=== PATIENT | female | born 1980 | race Caucasian/White ===

== ENCOUNTER 2020-04-18 12:15 | Emergency (ER) | payer MEDICAID ==
[~2020-04-18] VITALS: Ht 154.9 cm; Wt 86.2 kg
[~2020-04-18 12:15] MED LIST: CITA-77; DIVA1TAB59; DIVA500T13; DOXE25CA2; HYDR25T; LORA-205; QUET300T14 PO; TRAZ100T3
[2020-04-18 12:34] VITALS: BP 119/72
== END 2020-04-18 13:35 | disposition home or self-care (01) ==
LOC: ER 12:15
DX: F41.9 Anxiety disorder, unspecified (principal); Z76.0 Encounter for issue of repeat prescription

== ENCOUNTER → 2020-05-09 | Emergency (ER) | payer MEDICAID ==
[~2020-05-09] VITALS: Ht 154.9 cm; Wt 81.6 kg
[2020-05-09 12:37] VITALS: BP 167/90
== END | disposition home or self-care (01) ==
LOC: ER 10:02
DX: Z76.0 Encounter for issue of repeat prescription (principal); F31.9 Bipolar disorder, unspecified; F41.9 Anxiety disorder, unspecified; F17.210 Nicotine dependence, cigarettes, uncomplicated; Z88.6 Allergy status to analgesic agent; Z88.5 Allergy status to narcotic agent; Z88.8 Allergy status to other drugs, medicaments and biological substances; Z79.899 Other long term (current) drug therapy; Z90.49 Acquired absence of other specified parts of digestive tract; Z98.890 Other specified postprocedural states